=== PATIENT | female | born 1990 | race Two or more races ===

== ENCOUNTER 2019-10-30 12:30 | Inpatient (IN) | payer OTHER ==
[~2019-10-30] VITALS: Ht 162.6 cm; Wt 73.9 kg
[~2019-10-30 12:30] MED LIST: PRENATAL 19 TA1 EACH PO
== END 2019-11-21 12:42 | disposition home or self-care (01) | DRG 807 ==
LOC: OB/GYN 11-19 17:01 → LDR 11-19 17:01 → OB/GYN 11-20 00:03 → LDR 11-24 12:30
PROVIDERS: ADMIT Specialist
PROC: 10E0XZZ Delivery of Products of Conception, External Approach (ICD-10-PCS; principal; 2019-11-19)
PROC: 10907ZC Drainage of Amniotic Fluid, Therapeutic from Products of Conception, Via Natural or Artificial Opening (ICD-10-PCS; 2019-11-19)
PROC: 4A1HXCZ Monitoring of Products of Conception, Cardiac Rate, External Approach (ICD-10-PCS; 2019-11-19)
DX: O80 Encounter for full-term uncomplicated delivery (principal); Z37.0 Single live birth; Z3A.39 39 weeks gestation of pregnancy

== ENCOUNTER 2019-11-19 05:20 | Outpatient (CLI) | payer OTHER | END 2019-11-19 17:02 | disposition still patient (30) | LOC: OBS/DEL 05:20 | DX: O47.1 False labor at or after 37 completed weeks of gestation (principal) ==

== ENCOUNTER 2023-02-19 22:17 | Emergency (ER) | payer OTHER ==
[~2023-02-19] VITALS: Ht 162.6 cm; Wt 63.5 kg
== END 2023-02-20 00:11 | disposition home or self-care (01) ==
LOC: ER 22:17
DX: O20.9 Hemorrhage in early pregnancy, unspecified (principal); Z3A.22 22 weeks gestation of pregnancy; Z88.6 Allergy status to analgesic agent

== ENCOUNTER 2023-05-08 22:01 | Inpatient (IN) | payer OTHER ==
[~2023-05-08] VITALS: Ht 162.6 cm; Wt 67.6 kg
== END 2023-05-12 13:09 | disposition home or self-care (01) | DRG 831 ==
LOC: OBS/DEL 22:01 → LDR 05-09 21:14 → OB/GYN 05-10 19:28
PROVIDERS: ADMIT Specialist; ATTEND Specialist
PROC: BY4CZZZ Ultrasonography of Second Trimester, Single Fetus (ICD-10-PCS; principal; 2023-05-08)
PROC: 4A1HXCZ Monitoring of Products of Conception, Cardiac Rate, External Approach (ICD-10-PCS; 2023-05-09)
PROC: BY4CZZZ Ultrasonography of Second Trimester, Single Fetus (ICD-10-PCS; 2023-05-09)
PROC: BU4CZZZ Ultrasonography of Uterus and Ovaries (ICD-10-PCS; 2023-05-09)
DX: O42.112 Preterm premature rupture of membranes, onset of labor more than 24 hours following rupture, second trimester (principal); O60.02 Preterm labor without delivery, second trimester; O26.842 Uterine size-date discrepancy, second trimester; Z3A.20 20 weeks gestation of pregnancy; Z20.822 Contact with and (suspected) exposure to COVID-19

== ENCOUNTER 2023-06-24 09:30 | Inpatient (IN) | payer OTHER ==
[~2023-06-24] VITALS: Ht 175.3 cm; Wt 72.1 kg
[~2023-06-24 09:30] MED LIST changes: +INTEGRA PLUS C1 EACH
--- NOTE | 2023-06-24 09:44 | NUR ---
PACIENTE ALERTA Y ORIENTDA X 3 REFIERE DRA BAHENA NORRIS LA ENVIA ER PARA SER ADMITIDA POR JANETT ROTOI ROBSON A LAS 20 SEMANAS.
[2023-06-24 11:01] LABS: HEMATOCRIT 37.1 % (36.0-45.00); HEMOGLOBIN 12.2 g/dL (12.0-15.00); MEAN CELL VOLUME 83.5 fL (80.00-100.00); MEAN CORPUSCULAR HEMOGLOBIN 27.4 pg (27.00-32.0); MEAN CORPUSCULAR HGB CONC 32.8 g/dl (32.0-36.0); PLATELET COUNT 212 K/uL (150-450); RED BLOOD COUNT 4.44 M/uL (4.00-6.00); RED CELL DISTRIBUTION WIDTH 14.9 % (11.5-14.5)
[2023-06-24 11:10] LABS: ALBUMIN 2.8 gm/dL (3.4-5.0); BILIRUBIN TOTAL 0.6 mg/dL (0.3-1.2); CALCIUM 9.3 mg/dL (8.5-10.1); CREATININE SERUM 0.55 mg/dL (0.55-1.02); GFR 126.52; GLOBULINA 4.9 G/DL (2.4-3.5); POTASSIUM 3.24 mEq/L (3.5-5.1); TOTAL PROTEIN 7.7 gm/dL (6.4-8.2)
[2023-06-26 23:06] LABS: chla t Negative (Negative); neiss Negative (Negative)
[2023-07-10 07:03] LABS: MEAN CELL VOLUME 81.2 fL (80.00-100.00); MEAN CORPUSCULAR HGB CONC 34.4 g/dl (32.0-36.0); PLATELET COUNT 203 K/uL (150-450); RED BLOOD COUNT 3.82 M/uL (4.00-6.00); RED CELL DISTRIBUTION WIDTH 14.8 % (11.5-14.5)
[2023-07-10 07:17] LABS: HEMOGLOBIN 10.7 g/dL (12.0-15.00)
[2023-07-17 06:21] LABS: HEMATOCRIT 31.4 % (36.0-45.00); HEMOGLOBIN 10.8 g/dL (12.0-15.00); MEAN CELL VOLUME 80.4 fL (80.00-100.00); MEAN CORPUSCULAR HEMOGLOBIN 27.8 pg (27.00-32.0); MEAN CORPUSCULAR HGB CONC 34.6 g/dl (32.0-36.0); PLATELET COUNT 196 K/uL (150-450); RED CELL DISTRIBUTION WIDTH 14.7 % (11.5-14.5)
[2023-07-24 06:52] LABS: HEMATOCRIT 32.6 % (36.0-45.00); HEMOGLOBIN 10.9 g/dL (12.0-15.00); MEAN CELL VOLUME 81.9 fL (80.00-100.00); MEAN CORPUSCULAR HEMOGLOBIN 27.4 pg (27.00-32.0); MEAN CORPUSCULAR HGB CONC 33.5 g/dl (32.0-36.0); PLATELET COUNT 179 K/uL (150-450); RED BLOOD COUNT 3.98 M/uL (4.00-6.00); RED CELL DISTRIBUTION WIDTH 14.1 % (11.5-14.5)
[2023-07-31 09:51] LABS: ABG PH 7.304 (7.35-7.45)
[2023-07-31 09:52] LABS: ABG PO2 23.7 mmHg (80-100); ABG pCO2 44.1 mmHg (35-45); BASE EXCESS -4.9 mmol/l; BICARBONATE 21.4 mmol/l (23-25); SaO2 33.8 %
== END 2023-08-03 18:12 | disposition home or self-care (01) | DRG 806 ==
LOC: ER 09:30 → OB/GYN 11:37
PROVIDERS: Obstetrics & Gynecology; ADMIT Specialist; ATTEND Specialist
PROC: 4A1HXCZ Monitoring of Products of Conception, Cardiac Rate, External Approach (ICD-10-PCS; 2023-06-24)
PROC: BY4CZZZ Ultrasonography of Second Trimester, Single Fetus (ICD-10-PCS; 2023-06-25)
PROC: BY4FZZZ Ultrasonography of Third Trimester, Single Fetus (ICD-10-PCS; 2023-07-02)
PROC: BY4FZZZ Ultrasonography of Third Trimester, Single Fetus (ICD-10-PCS; 2023-07-10)
PROC: BY4FZZZ Ultrasonography of Third Trimester, Single Fetus (ICD-10-PCS; 2023-07-17)
PROC: BY4FZZZ Ultrasonography of Third Trimester, Single Fetus (ICD-10-PCS; 2023-07-23)
PROC: BY4FZZZ Ultrasonography of Third Trimester, Single Fetus (ICD-10-PCS; 2023-07-30)
PROC: 10E0XZZ Delivery of Products of Conception, External Approach (ICD-10-PCS; principal; 2023-07-31)
DX: O60.13X0 Preterm labor second trimester with preterm delivery third trimester, not applicable or unspecified (principal); O41.02X0 Oligohydramnios, second trimester, not applicable or unspecified; Z37.0 Single live birth; O41.03X0 Oligohydramnios, third trimester, not applicable or unspecified; O24.420 Gestational diabetes mellitus in childbirth, diet controlled; O24.410 Gestational diabetes mellitus in pregnancy, diet controlled; O26.842 Uterine size-date discrepancy, second trimester; O36.8120 Decreased fetal movements, second trimester, not applicable or unspecified; O42.112 Preterm premature rupture of membranes, onset of labor more than 24 hours following rupture, second trimester; O36.8130 Decreased fetal movements, third trimester, not applicable or unspecified; O42.013 Preterm premature rupture of membranes, onset of labor within 24 hours of rupture, third trimester; Z3A.27 27 weeks gestation of pregnancy; O28.3 Abnormal ultrasonic finding on antenatal screening of mother